=== PATIENT | female | born 1970 | race Caucasian/White ===

== ENCOUNTER 2019-03-25 11:47 | Inpatient (IN) | payer OTHER ==
[~2019-03-25] VITALS: Ht 172.7 cm; Wt 96.8 kg
[2019-03-25] MEDS ORDERED: ONDANSETRON 2MG/ML, 2ML ONE (11:50)
[2019-03-25] MEDS ORDERED: SODIUM CHLORIDE 0.9% 1,000 ML IV ONE (11:57)
[2019-03-25] MEDS ORDERED: ONDANSETRON 2MG/ML, 2ML IVPush ONE (12:00)
[2019-03-25] MEDS ORDERED: SUCCINYLCHOLINE 20 MG/ML, 10ML IVPush ONE (12:00)
[2019-03-25] MEDS ORDERED: ETOMIDATE 40 MG/20 ML IVPush ONE (12:00)
[2019-03-25] MEDS ORDERED: SODIUM CHLORIDE 0.9% 1,000ML IVBOLUS ONE (12:00)
[2019-03-25 12:24] LABS: BASOPHILS # (AUTO) 0.04 x10^3/uL (0-0.1); BASOPHILS % (AUTO) 1 % (0-1); EOSINOPHILS # (AUTO) 0.02 x10^3/uL (0-0.4); EOSINOPHILS % (AUTO) 0 % (1-7); LYMPHOCYTES # (AUTO) 1.37 x10^3/uL (1-3.4); LYMPHOCYTES % (AUTO) 28 % (22-44); MD NO; MEAN CORPUSCULAR HEMOGLOBIN 32.8 pg (27.0-34.8); MEAN CORPUSCULAR HGB CONC 32.7 g/dL (32.4-35.8); MEAN CORPUSCULAR VOLUME 100.2 fL (80-100); MEAN PLATELET VOLUME 9.8 fL (7.4-10.4); MONOCYTES # (AUTO) 0.25 x10^3/uL (0.2-0.8); MONOCYTES % (AUTO) 5 % (2-9); NEUTROPHILS # (AUTO) 3.24 x10^3/uL (1.8-6.8); NEUTROPHILS % (AUTO) 66 % (42-75); PLATELET COUNT 204 x10^3/uL (130-400); RED CELL DISTRIBUTION WIDTH 15.2 % (9.6-15.2)
[2019-03-25] MEDS ORDERED: NALOXONE 1 MG/ML, 2ML IVPush ONE (12:30)
[2019-03-25] MEDS ORDERED: PLEASE ENTER HEIGHT AND WEIGHT MC SCH (12:30)
[2019-03-25] MEDS ORDERED: PLEASE ENTER ALLERGIES MC SCH (12:30)
[2019-03-25 12:38] LABS: ALBUMIN 3.3 g/dL (3.4-5.0); ANION GAP 11 mmol/L (5-15); CHLORIDE 113 mmol/L (98-107)
[2019-03-25 12:39] LABS: SALICYLATE LEVEL < 1.7 mg/dL (2.8-20.0)
[2019-03-25 12:46] LABS: ACETAMINOPHEN 43 mcg/mL (10-30); ALANINE AMINOTRANSFERASE 21 U/L (12-78); ALKALINE PHOSPHATASE 46 U/L (45-117); BILIRUBIN,TOTAL 0.3 mg/dL (0.2-1.0); CREATININE 0.84 mg/dL (0.55-1.02); TOTAL PROTEIN 6.4 g/dL (6.4-8.2)
[2019-03-25] MEDS ORDERED: CHARCOAL/SORBITOL 50 GM/240 ML NG ONE (13:00)
[2019-03-25] MEDS ORDERED: DEXTROSE 5% IV ONE (13:00)
[2019-03-25] MEDS: PROPOFOL 100 ML IV PRN ×3 (13:00→22:43)
[2019-03-25] MEDS ORDERED: ACETYLCYSTEINE IV ONE (13:00)
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
--- NOTE | 2019-03-25 13:12 | NUR ---
VENT SETTINGS AT THIS TIME. A/C RATE OF 14, TV 500ML, PEEP 5, PEEPM 9.5, Ti 0.905, 100% FIO2.
[2019-03-25] MEDS: SODIUM CHLORIDE 0.9% 1,000 ML IV SCH ×2 (13:22→22:03)
[2019-03-25] MEDS ORDERED: THIAMINE 200 MG in SODIUM CHLORIDE 0.9% 50 ML IV ONE (13:30)
[2019-03-25] MEDS ORDERED: MAGNESIUM SULFATE PMX 2GM/50ML 50 ML IV ONE (13:30)
[2019-03-25] MEDS: AMPICILLIN/SULBACTAM 3 GM in SODIUM CHLORIDE 0.9% 100 ML IV SCH ×2 (13:30→20:04)
[2019-03-25] MEDS ORDERED: FOLIC ACID 1 MG, THIAMINE 200 MG, MVI ADULT 10 ML in DEXTROSE 5% 1,000 ML IV SCH (13:30)
--- NOTE | 2019-03-25 13:38 | NUR ---
MUNIRA SLADE [phone] GIDEON SLADE [phone] MUNIRA GIVEN CELL PHONE PT ARRIVED WITH.
--- NOTE | 2019-03-25 13:39 | NUR ---
PT MEDICATIONS STARTED. DEFTU WISHING FOR SECOND BOLUS AT THIS TIME.
[2019-03-25] MEDS ORDERED: CHARCOAL/SORBITOL 50 GM/240 ML ONE (13:44)
[2019-03-25] MEDS ORDERED: NALOXONE 1 MG/ML, 2ML ONE (13:44)
[2019-03-25] MEDS ORDERED: MAGNESIUM SULFATE PMX 2GM/50ML 50 ML ONE (13:44)
--- NOTE | 2019-03-25 15:01 | NUR ---
REPORT GIVEN TO MG RN, LINES CHECKED AT BEDSIDE AND MEDICATIONS VERIFIED AT BEDSIDE. ET TUBE SECURE AT 22CM STILL AND PT RESTING COMFORTABLEY AND VSS.
--- NOTE | 2019-03-25 15:02 | NUR ---
PER DR. HOWARD. PT TO UNSTABLE TO TRANSFER
--- NOTE | 2019-03-25 15:04 | NUR ---
SENDY RT INFORMED RN THAT FIO2 REDUCED FROM 100% TO 55%
[2019-03-25] MEDS ORDERED: PROPOFOL 100 ML IV ONE ×2 (15:24→18:54)
[2019-03-25 15:26] LABS: AMPHETAMINE SCREEN, URINE Negative (Negative); BARBITURATE SCREEN, URINE Negative (Negative); BENZODIAZEPINE SCREEN, URINE Positive (Negative); CANNABINOID SCREEN, URINE Negative (Negative); COCAINE SCREEN, URINE Negative (Negative); METHADONE SCREEN, URINE Negative (Negative); OPIATE SCREEN, URINE Positive (Negative)
--- NOTE | 2019-03-25 15:30 | NUR ---
PATIENT AND FAMILY UPDATED ON PLAN OF CARE. AWAITING CCU BED
--- NOTE | 2019-03-25 16:29 | NUR ---
PATIENT APPEARS COMFORTABLE, VSS.
--- NOTE | 2019-03-25 16:42 | NUR ---
ADMITTING MD AT BEDSIDE WITH PATIENT FOR EVALUATION.
--- NOTE | 2019-03-25 16:54 | NUR ---
PATIENT THIAMINE IV ORDERED FROM PHARM
[2019-03-25] MEDS ORDERED: LACTULOSE 20 GM/30 ML UDC NG PRN (17:00)
[2019-03-25] MEDS ORDERED: BISACODYL 10 MG SUPP PR PRN (17:00)
[2019-03-25] MEDS ORDERED: FENTANYL PF 100 MCG/2ML IVPush PRN (17:00)
[2019-03-25] MEDS ORDERED: LIDOCAINE-MPF 1%, 2ML ENDO PRN (17:00)
[2019-03-25] MEDS ORDERED: SENNA 176 MG/5 ML ORAL SOL NG PRN (17:00)
[2019-03-25] MEDS ORDERED: DEXTROSE 50%, 50ML SYRINGE IVPush PRN (17:00)
[2019-03-25] MEDS ORDERED: SENNA/DOCUSATE TABLET NG PRN (17:00)
[2019-03-25] MEDS ORDERED: LORazepam 2 MG/ML, 1ML IVPush PRN (17:00)
[2019-03-25] MEDS ORDERED: DEXTROSE 4 GM TAB.CHEW PO PRN (17:00)
[2019-03-25] MEDS ORDERED: GLUCAGON 1 MG IM PRN (17:00)
[2019-03-25] MEDS ORDERED: PHARMACY MAY ADJ FOR RENAL FX MC SCH (17:00)
[2019-03-25 17:14] LABS: ACETAMINOPHEN 18 mcg/mL (10-30); TRIGLYCERIDES 192 mg/dL (50-200)
[2019-03-25 17:18] LABS: FIO2 45 %
[2019-03-25] MEDS ORDERED: ALBUTEROL/IPRATROPIUM 2.5MG/0.5MG, 3 ML ONE (18:01)
[2019-03-25] MEDS: ALBUTEROL/IPRATROPIUM 2.5MG/0.5MG, 3 ML INLINE SCH ×2 (18:14→21:57)
[2019-03-25 18:32] LABS: MICROSCOPIC INDICATED
[2019-03-25 18:48] LABS: CULTURE INDICATED? NO
--- NOTE | 2019-03-25 19:41 | NUR ---
GIVEN REPORT TO KISHA CAMERON PT WAS TRANSFERRED TO CCU VSS STABLE
[2019-03-25 20:32] LABS: ACETAMINOPHEN 7 mcg/mL (10-30)
[2019-03-25 20:35] LABS: CREATINE KINASE, TOTAL 67 U/L (26-192); TROPONIN I < 0.015 ng/mL (0.000-0.045)
[2019-03-25] MEDS ORDERED: INSULIN LISPRO 100 UNITS/ML, PEN SQ-INSULIN SCH (21:00)
[2019-03-25] MEDS: SODIUM CHLORIDE FLUSH 10ML SYR IVF SCH (21:15)
[2019-03-25 23:36] VITALS: BP 146/98
[2019-03-26] MEDS: AMPICILLIN/SULBACTAM 3 GM in SODIUM CHLORIDE 0.9% 100 ML IV SCH ×2 (02:27→07:44)
[2019-03-26] MEDS: PROPOFOL 100 ML IV PRN ×2 (02:28→05:21)
[2019-03-26] MEDS: ALBUTEROL/IPRATROPIUM 2.5MG/0.5MG, 3 ML INLINE SCH ×2 (02:31→06:17)
[2019-03-26 04:00] VITALS: BP 131/84
[2019-03-26 04:25] LABS: BASOPHILS # (AUTO) 0.02 x10^3/uL (0-0.1); BASOPHILS % (AUTO) 0 % (0-1); EOSINOPHILS # (AUTO) 0.05 x10^3/uL (0-0.4); EOSINOPHILS % (AUTO) 1 % (1-7); LYMPHOCYTES # (AUTO) 1.37 x10^3/uL (1-3.4); LYMPHOCYTES % (AUTO) 21 % (22-44); MD NO; MEAN CORPUSCULAR HEMOGLOBIN 32.9 pg (27.0-34.8); MEAN CORPUSCULAR HGB CONC 32.9 g/dL (32.4-35.8); MEAN PLATELET VOLUME 9.7 fL (7.4-10.4); MONOCYTES # (AUTO) 0.62 x10^3/uL (0.2-0.8); MONOCYTES % (AUTO) 10 % (2-9); NEUTROPHILS # (AUTO) 4.51 x10^3/uL (1.8-6.8); NEUTROPHILS % (AUTO) 69 % (42-75); PLATELET COUNT 161 x10^3/uL (130-400); RED BLOOD COUNT 3.32 x10^6/uL (3.82-5.3); RED CELL DISTRIBUTION WIDTH 15.4 % (9.6-15.2)
[2019-03-26] MEDS: SODIUM CHLORIDE 0.9% 1,000 ML IV SCH (04:31)
[2019-03-26 04:38] LABS: ALANINE AMINOTRANSFERASE 15 U/L (12-78); ALBUMIN 2.9 g/dL (3.4-5.0); ANION GAP 9 mmol/L (5-15); CALCIUM 6.9 mg/dL (8.5-10.1); CHLORIDE 112 mmol/L (98-107); CREATININE 0.79 mg/dL (0.55-1.02)
[2019-03-26 05:06] LABS: ALKALINE PHOSPHATASE 35 U/L (45-117); TOTAL PROTEIN 5.8 g/dL (6.4-8.2)
[2019-03-26 05:07] LABS: BILIRUBIN,TOTAL < 0.1 mg/dL (0.2-1.0)
[2019-03-26] MEDS ORDERED: INSULIN LISPRO 100 UNITS/ML, PEN SQ-INSULIN SCH (07:00)
[2019-03-26] MEDS: SODIUM CHLORIDE FLUSH 10ML SYR IVF SCH ×2 (09:00→21:00)
[2019-03-26] MEDS ORDERED: CYANOCOBALAMIN 1,000 MCG/ML, 1ML IM SCH (13:00)
[2019-03-26] MEDS: AMOXICILLIN/CLAV 875-125MG TABLET PO SCH ×2 (13:01→23:35)
[2019-03-26] MEDS: MULTIVITAMINS/MINERALS TABLET PO SCH (13:04)
[2019-03-26] MEDS: THIAMINE 100MG TABLET PO SCH (13:04)
[2019-03-26] MEDS: FOLIC ACID 1 MG TABLET PO SCH (13:04)
[2019-03-26] MEDS ORDERED: VENL150C6 PO (16:44)
[2019-03-26] MEDS ORDERED: BUPR300T49 PO (16:44)
[2019-03-26] MEDS ORDERED: ALPR0.25 PO (16:44)
[2019-03-26] MEDS ORDERED: LISI-170 PO (16:44)
[2019-03-27 04:42] LABS: BASOPHILS # (AUTO) 0.07 x10^3/uL (0-0.1); BASOPHILS % (AUTO) 1 % (0-1); EOSINOPHILS # (AUTO) 0.07 x10^3/uL (0-0.4); EOSINOPHILS % (AUTO) 2 % (1-7); LYMPHOCYTES # (AUTO) 1.46 x10^3/uL (1-3.4); LYMPHOCYTES % (AUTO) 30 % (22-44); MD NO; MEAN CORPUSCULAR HEMOGLOBIN 32.8 pg (27.0-34.8); MEAN CORPUSCULAR HGB CONC 32.9 g/dL (32.4-35.8); MEAN CORPUSCULAR VOLUME 99.9 fL (80-100); MEAN PLATELET VOLUME 9.5 fL (7.4-10.4); MONOCYTES # (AUTO) 0.43 x10^3/uL (0.2-0.8); MONOCYTES % (AUTO) 9 % (2-9); NEUTROPHILS # (AUTO) 2.88 x10^3/uL (1.8-6.8); NEUTROPHILS % (AUTO) 59 % (42-75); PLATELET COUNT 146 x10^3/uL (130-400); RED BLOOD COUNT 3.23 x10^6/uL (3.82-5.3); RED CELL DISTRIBUTION WIDTH 14.6 % (9.6-15.2)
[2019-03-27 04:50] LABS: CALCIUM 7.3 mg/dL (8.5-10.1); CHLORIDE 116 mmol/L (98-107)
[2019-03-27 04:55] LABS: ALANINE AMINOTRANSFERASE 14 U/L (12-78); ALBUMIN 2.6 g/dL (3.4-5.0); ALKALINE PHOSPHATASE 41 U/L (45-117); ANION GAP 5 mmol/L (5-15); BILIRUBIN,TOTAL 0.2 mg/dL (0.2-1.0); CREATININE 0.69 mg/dL (0.55-1.02); TOTAL PROTEIN 5.4 g/dL (6.4-8.2)
[2019-03-27 05:20] VITALS: BP 141/84
[2019-03-27] MEDS ORDERED: ACETAMINOPHEN 325 MG TABLET ONE (09:00)
[2019-03-27] MEDS: FOLIC ACID 1 MG TABLET PO SCH (09:01)
[2019-03-27] MEDS: THIAMINE 100MG TABLET PO SCH (09:01)
[2019-03-27] MEDS: ACETAMINOPHEN 325 MG TABLET PO PRN ×3 (09:02→22:00)
[2019-03-27] MEDS: MULTIVITAMINS/MINERALS TABLET PO SCH (09:02)
[2019-03-27] MEDS: SODIUM CHLORIDE FLUSH 10ML SYR IVF SCH ×2 (09:02→21:00)
[2019-03-27] MEDS: ENOXAPARIN 40 MG/0.4 ML SQ SCH (09:23)
[2019-03-27 09:53] VITALS: BP 148/95
[2019-03-27] MEDS: AMOXICILLIN/CLAV 875-125MG TABLET PO SCH ×2 (10:08→21:59)
[2019-03-27 12:49] VITALS: BP 146/94
[2019-03-27] MEDS ORDERED: MULT-484 PO (14:18)
[2019-03-27] MEDS ORDERED: FOLI-17 PO (14:18)
[2019-03-27] MEDS ORDERED: AMOX1TAB12 PO (14:18)
[2019-03-27] MEDS ORDERED: CYAN100T2 PO (14:18)
[2019-03-27] MEDS ORDERED: THIA100T67 PO (14:18)
[2019-03-28 00:39] VITALS: BP 140/78
[2019-03-28] MEDS: ACETAMINOPHEN 325 MG TABLET PO PRN ×2 (03:34→09:06)
[2019-03-28 07:50] VITALS: BP 146/84
[2019-03-28] MEDS: MULTIVITAMINS/MINERALS TABLET PO SCH (08:53)
[2019-03-28] MEDS: FOLIC ACID 1 MG TABLET PO SCH (08:53)
[2019-03-28] MEDS: THIAMINE 100MG TABLET PO SCH (08:53)
[2019-03-28] MEDS: AMOXICILLIN/CLAV 875-125MG TABLET PO SCH (08:53)
[2019-03-28] MEDS: ENOXAPARIN 40 MG/0.4 ML SQ SCH (08:54)
[2019-03-28] MEDS: SODIUM CHLORIDE FLUSH 10ML SYR IVF SCH (08:54)
[2019-03-28] MEDS ORDERED: CYANOCOBALOMIN 100MCG TABLET PO SCH (09:00)
[2019-03-28 12:22] VITALS: BP 156/91
[2019-03-29] MEDS ORDERED: LISINOPRIL 20 MG TABLET PO SCH (09:00)
== END 2019-03-28 20:49 | DRG 917 ==
LOC: SUATTDRO 13:16 → ED 14:16 → MERGE 14:16 → EDIP 15:37 → CCU 19:41 → 3NE 03-27 09:31
PROVIDERS: ADMIT Internal Medicine; ATTEND Internal Medicine
PROC: 0T9B70Z Drainage of Bladder with Drainage Device, Via Natural or Artificial Opening (ICD-10-PCS; principal; 2019-03-25)
PROC: 5A1945Z Respiratory Ventilation, 24-96 Consecutive Hours (ICD-10-PCS; 2019-03-25)
PROC: 0BH17EZ Insertion of Endotracheal Airway into Trachea, Via Natural or Artificial Opening (ICD-10-PCS; 2019-03-25)
DX: T43.212A Poisoning by selective serotonin and norepinephrine reuptake inhibitors, intentional self-harm, initial encounter (principal); G92 Toxic encephalopathy; J96.01 Acute respiratory failure with hypoxia; J69.0 Pneumonitis due to inhalation of food and vomit; E87.0 Hyperosmolality and hypernatremia; J98.11 Atelectasis; Z99.11 Dependence on respirator [ventilator] status; D53.9 Nutritional anemia, unspecified; T51.0X2A Toxic effect of ethanol, intentional self-harm, initial encounter; T43.292A Poisoning by other antidepressants, intentional self-harm, initial encounter; T40.2X2A Poisoning by other opioids, intentional self-harm, initial encounter; D75.89 Other specified diseases of blood and blood-forming organs; E53.8 Deficiency of other specified B group vitamins; E88.09 Other disorders of plasma-protein metabolism, not elsewhere classified; F10.129 Alcohol abuse with intoxication, unspecified; F32.9 Major depressive disorder, single episode, unspecified; G89.4 Chronic pain syndrome; I10 Essential (primary) hypertension; Y92.89 Other specified places as the place of occurrence of the external cause; I45.81 Long QT syndrome; Z91.5 Personal history of self-harm
CPT/HCPCS: 31500; 36415; 36600; 96361; 99291; J7620; 70450; 71045; 80053; 80307; 81001; 82140; 82550; 82607; 82803; 82962; 83605; 83690; 83735; 84100; 84443; 84478; 84484; 84703; 85025; 87070; 87081; 87205; 93005; 94002; 94003; 94640; 96374; 96375; G0378; J0132; J0295; J1650; J2405; J2704; J3411; J7060; J7070; J0330; J2060; J2310; J3420; J3475; J7030